=== PATIENT | female | born 1995 | race Caucasian/White ===

== ENCOUNTER 2017-06-05 02:34 | Outpatient (CLI) | payer OTHER ==
[2017-06-05] MEDS: LACTATED RINGERS 1,000 ML IV SCH ×3 (03:15→04:45)
[2017-06-05 03:41] LABS: Basophils % (A) 0 %; Eosinophils # (A) 0.1 k/uL (0-0.7); Eosinophils % (A) 2 %; HCT 34.6 % (34.0-46.0); HGB 11.7 gm/dL (11.4-16.0); Lymphocytes # (A) 1.9 k/uL (1.0-4.8); Lymphocytes % (A) 24 %; MCH 30.4 pg (25.0-35.0); MCHC 33.7 g/dL (31.0-37.0); MCV 90.1 fL (80.0-100.0); Monocytes # (A) 0.7 k/uL (0-1.0); Monocytes % (A) 8 %; Neutrophils # (A) 5.3 k/uL (1.3-7.7); Neutrophils % (A) 65 %; Platelet Count 216 k/uL (150-450); RBC 3.84 m/uL (3.80-5.40); RDW 13.3 % (11.5-15.5); WBC 8.2 k/uL (3.8-10.6)
[2017-06-05 03:51] VITALS: BP 129/85; PULSE 90; RESP 18; TEMP 97.8
[2017-06-05 04:31] LABS: Amorphous Sediment,Urine Rare /hpf; Appearance,Urine Turbid (Clear); Bilirubin,Urine Negative (Negative); Blood,Urine Negative (Negative); Color,Urine Light Yellow; Glucose,Urine (UA) Negative (Negative); Ketones,Urine Negative (Negative); Leukocyte Esterase,Urine Trace (Negative); Mucus,Urine Rare /hpf; Nitrite,Urine Negative (Negative); Protein,Urine Negative (Negative); Specific Gravity,Urine 1.008 (1.001-1.035); Squamous Epithelial Cell,Urine 2 /hpf (0-4); Urobilinogen,Urine <2.0 mg/dL (<2.0); WBC,Urine 2 /hpf (0-5)
[2017-06-05] MEDS ORDERED: BUTORPHANOL 1 MG/ML 1 ML VIAL IV PRN (04:38)
[2017-06-05] MEDS ORDERED: ACETAMINOPHEN IV (For NPO) 1,000 MG in EMPTY BAG 1 BAG IVPB STA (04:38)
--- NOTE | 2017-06-05 06:29 | US ---
ADDENDUM - Added by Sam Yen M.D. on 06/05/2017 6:30 AM (-05:00) Correction: Mild right bilateral hydronephrosis EXAM: US Retroperitoneal Complete CLINICAL HISTORY: Kidney pain. Left flank pain x2 days TECHNIQUE: Real-time ultrasound of the retroperitoneum (complete) with image documentation. COMPARISON: No relevant prior studies available. FINDINGS: Right kidney: 12.0 x 5.1 x 5.4 cm Appearing within the liver, adjacent to the right kidney, there is a prominent hyperechoic area visualized measuring 0.5 cm, nonspecific, differential includes artifact, granulomatous calcification versus tiny hemangioma. No stones. Left kidney: 12.6 x 5.5 x 5.0 cm No stones. No hydronephrosis. Bladder: Bilateral Jets are present Spleen: Measuring about 14.6 cm in long axis. Normal echotexture and contour IMPRESSION: Normal-appearing kidneys and urinary bladder Splenomegaly Critical Value Communications 06/05/17 06:45 Verify Receipt Verified receipt with [facility] on 06/05 06:44 (-05:00)
--- NOTE | 2017-07-13 13:52 | P.MSEPDOC ---
Presenting Problems - Arrival Data Date of Arrival on Unit: 06/05/17 Time of Arrival on Unit: 02:34 Mode of Transport: Portable - Complaint OB-Reason for Admission/Chief Complaint: Pain, Other Comment: C/o left flank pain Medical History - Information : 5 Para: 1 Term: 1 : 0 Abortions: Spontaneous or Elective: 0 Number of Living Children: 1 - Gestational Age Gestational Age by DEWEY (wks/days): 23 Weeks and 3 Days Review of Systems - Review of Systems Constitutional: No problems Breast: No problems ENT: No problems Cardiovascular: No problems Respiratory: No problems Gastrointestinal: No problems Genitourinary: No problems Musculoskeletal: No problems Neurological: No problems Skin: No problems Vital Signs - Temperature Temperature: 97.8 F Temperature Source: Temporal Artery Scan - Pulse Right Brachial Pulse Rate: 90 Pulse Assessment Method: Automatic Cuff - Respirations Respiratory Rate: 18 Oxygen Delivery Method: Room Air O2 Sat by Pulse Oximetry: 98 - Blood Pressure Right Arm Blood Pressure: 129/85 Blood Pressure Mean: 99 Blood Pressure Source: Automatic Cuff Medical Screen Scoring (Pre) - Cervical Exam Dilation: Exam Deferred Effacement: Exam Deferred Membranes: Intact - Uterine Contractions Frequency: N/A Duration: N/A Intensity: N/A - Maternal Vital Signs Maternal Temperature: N/A Maternal Blood Pressure: N/A Signs of Preeclampsia: N/A Maternal Respirations: N/A - Pain Assessment Pain Location and Character: Left, Lateral, Back, Abdomen Pain Scale Used: Numeric (1 - 10) Pain Intensity: 10 Pain Description: *Acute, Sharp, Shooting, Tender Pain Frequency: Intermittent Pain Duration: 5 Pain Duration Units: Minutes Pain Behavior: Crying, Facial Grimacing, Teary Eyed, Vocalization Pain Aggravating Factors: None Non-Pharmacological Interventions: Ice, Inactivity - Assessment Baseline FHR: 145 Heart Rate - NICHD Category: Category I (Normal) = 0 Position: N/A Station: N/A - Total Score Total Score (Pre): 0 - Level of Risk Level of Risk: N/A Physician Notification (Pre) - Physician Notified Physician Notified Date: 06/05/17 Physician Notified Time: 03:09 Physician/Practitioner Notifed:: Dr. Jovel Spoke With: Dr. Jovel New Order Received: Yes - Notification Comment Comment: Dr. Jovel called and given report on pt in triage, c/o of left flank pain starting around 2100 06/04/17, vs in wnl, pt tearful. Orders recieved for IV hydration, cbc w/diff, UA. Call with results with cbc and UA Medical Screen Scoring (Post) - Cervical Exam Dilation: Exam Deferred Effacement: Exam Deferred Membranes: Intact - Uterine Contractions Frequency: N/A Duration: N/A Intensity: N/A - Maternal Vital Signs Maternal Temperature: N/A Maternal Blood Pressure: N/A Signs of Preeclampsia: N/A Maternal Respirations: N/A - Pain Assessment Pain Location and Character: Left, Lateral, Back, Abdomen Pain Scale Used: Numeric (1 - 10) Pain Intensity: 8 Pain Description: *Acute, Sharp Pain Frequency: Intermittent Pain Duration: 10 Pain Duration Units: Minutes Pain Behavior: Facial Grimacing, Vocalization Pain Aggravating Factors: None Pharmacological Interventions: PRN Medication Non-Pharmacological Interventions: Inactivity - Assessment Heart Rate: 140 Heart Rate - NICHD Category: Category I (Normal) = 0 Position: N/A Station: N/A - Total Score Total Score (Post): 0 - Post Treatment Level of Risk Post Treatment Level of Risk: Low (0-5) Physician Notification (Post) - Physician Notified Physician Notified Date: 06/05/17 Physician Notified Time: 06:17 Physician/Practitioner Notified:: Dr. Jovel Spoke With: Dr. Jovel New Order Received: Yes (D/c pt to home) - Notification Comment Comment: reviewed by this RN Disposition - Disposition OB Disposition: Discharge to home Discharge Date: 06/05/17 Discharge Time: 06:40 I agree with the RN Medical Screening Exam: Yes Risk & Benefit of care provided described in d/c instruction: Yes Diagnosis: CALCULUS OF KIDNEY
== END 2017-06-05 06:40 | disposition home or self-care (01) ==
LOC: FBPOP 02:34
PROVIDERS: ATTEND Obstetrics & Gynecology
DX: O26.832 Pregnancy related renal disease, second trimester (principal); N20.0 Calculus of kidney; R16.1 Splenomegaly, not elsewhere classified; Z3A.23 23 weeks gestation of pregnancy
CPT/HCPCS: 99214; 96361; 96367; 96374; 85025; 81001; 76770; J0595; J0131; 96375

== ENCOUNTER 2017-09-24 08:54 | Inpatient (IN) | payer OTHER ==
[2017-09-23 13:38] VITALS: BMI 31.3
[2017-09-24] MEDS ORDERED: ceFAZolin IN SWFI 2 GM/20 ML SYRINGE IVP ONE (10:24)
[2017-09-24] MEDS ORDERED: CITRIC ACID-SODIUM CITRATE 15 ML CUP PO ONE (10:24)
[2017-09-24] MEDS ORDERED: LACTATED RINGERS 1,000 ML IV SCH (10:30)
[2017-09-24 11:45] LABS: Basophils % (A) 0 %; Eosinophils # (A) 0.1 k/uL (0-0.7); Eosinophils % (A) 1 %; HCT 32.2 % (34.0-46.0); HGB 10.4 gm/dL (11.4-16.0); Hypochromasia Moderate; Lymphocytes # (A) 1.9 k/uL (1.0-4.8); Lymphocytes % (A) 19 %; MCH 23.8 pg (25.0-35.0); MCHC 32.3 g/dL (31.0-37.0); MCV 73.6 fL (80.0-100.0); Mean Platelet Volume 9.1; Microcytosis Slight; Monocytes # (A) 0.6 k/uL (0-1.0); Monocytes % (A) 6 %; Neutrophils # (A) 6.9 k/uL (1.3-7.7); Neutrophils % (A) 72 %; Platelet Count 231 k/uL (150-450); Poikilocytosis Slight; RBC 4.38 m/uL (3.80-5.40); RDW 15.1 % (11.5-15.5); WBC 9.7 k/uL (3.8-10.6)
[2017-09-24] MEDS ORDERED: ONDANSETRON 4 MG/2 ML VIAL ONE (12:10)
[2017-09-24] MEDS ORDERED: ePHEDrine SULFATE/0.9% NACL/PF 50 MG/5 ML SYRINGE IV ONE (12:10)
[2017-09-24] MEDS ORDERED: KETOROLAC 30 MG/ML 1 ML VIAL ONE (12:10)
[2017-09-24] MEDS ORDERED: OXYTOCIN 10 UNIT/ML 1 ML VIAL ONE (12:10)
[2017-09-24] MEDS ORDERED: MORPHINE SULFATE (PF) 0.3 MG/0.3 ML SYR ONE (12:10)
[2017-09-24] MEDS ORDERED: NALBUPHINE 10 MG/ML AMPUL ONE (12:10)
[2017-09-24] MEDS ORDERED: ONDANSETRON 4 MG/2 ML VIAL IVP PRN ×2 (12:55→13:02)
[2017-09-24] MEDS ORDERED: MORPHINE SULFATE 4 MG/ML SYRINGE IVP PRN (12:55)
[2017-09-24] MEDS ORDERED: diphenhydrAMINE 50 MG/ML 1 ML VIAL IVP PRN ×3 (12:55→13:02)
[2017-09-24] MEDS ORDERED: NALOXONE 0.4 MG/ML 1 ML VIAL IV PRN ×2 (12:55→13:02)
--- NOTE | 2017-09-24 12:59 | P.HPOB ---
History of Present Illness H&P Date: 09/24/17 Chief Complaint: IUP at 39 and one sevenths weeks, history of 1 desires repeat This is a 21-year-old 5 para 1031 at 39 and one sevenths weeks with an estimated due date of 09/30/2017. Patient presents for repeat section. Patient denies contractions, vaginal bleeding, loss of fluid. She notes good movement On blood work a blood type of A+ was noted, rubella immune, hepatitis B surface antigen negative, GBS negative, HIV negative, RPR nonreactive. Review of Systems Constitutional: Denies chills, Denies fever Cardiovascular: Reports edema Respiratory: Denies cough, Denies dyspnea Gastrointestinal: Reports nausea, Reports vomiting, Denies constipation, Denies diarrhea Genitourinary: Reports Psychiatric: Reports anxiety, Reports anxiety attacks, Reports depression Past Medical History Past Medical History: GERD/Reflux Additional Past Medical History / Comment(s): migraines, History of Any Multi-Drug Resistant Organisms: None Reported Past Surgical History: Section Past Anesthesia/Blood Transfusion Reactions: Motion Sickness Smoking Status: Never smoker - Past Family History Mother Family Medical History: Cancer Medications and Allergies Home Medications Medication Instructions Recorded Confirmed Type Ondansetron [Zofran] 4 mg PO DAILY 04/23/17 09/23/17 History Ranitidine HCl [Zantac] 150 mg PO BID 09/23/17 09/23/17 History Allergies Allergy/AdvReac Type Severity Reaction Status Date / Time tree nut Allergy Dyspnea Verified 09/23/17 13:32 Exam Osteopathic Statement: *. No significant issues noted on an osteopathic structural exam other than those noted in the History and Physical/Consult. - Vital Signs Vital signs: Intake and Output 09/23/17 09/24/17 09/24/17 22:59 06:59 14:59 Other: Weight 87.997 kg Results Result Diagrams: 09/24/17 10:54 Abnormal Lab Results - Last 24 Hours (Table) 09/24/17 Range/Units 10:54 Hgb 10.4 L (11.4-16.0) gm/dL Hct 32.2 L (34.0-46.0) % MCV 73.6 L (80.0-100.0) fL MCH 23.8 L (25.0-35.0) pg Assessment and Plan (1) Term Current Visit: Yes Status: Acute Code(s): Z34.80 - ENCOUNTER FOR SUPRVSN OF NORMAL , UNSP TRIMESTER SNOMED Code(s): 92437119 (2) H/O section Current Visit: Yes Status: Acute Code(s): Z98.891 - HISTORY OF UTERINE SCAR FROM PREVIOUS SURGERY SNOMED Code(s): 592456082 (3) Anxiety Current Visit: Yes Status: Acute Code(s): F41.9 - ANXIETY DISORDER, UNSPECIFIED SNOMED Code(s): 45789113 (4) Depressed Current Visit: Yes Status: Acute Code(s): F32.9 - MAJOR DEPRESSIVE DISORDER , SINGLE EPISODE, UNSPECIFIED SNOMED Code(s): 45327353 Plan: We will admit patient for repeat section as discussed with patient in the office. Informed consent was obtained risks were reviewed including but not limited to infection, bleeding, damage to bladder, bowel, ureteric, injury. Questions were answered and patient states understanding. We'll proceed with repeat section.
[2017-09-24] MEDS ORDERED: diphenhydrAMINE 25 MG CAP PO PRN (13:02)
[2017-09-24] MEDS ORDERED: ZOLPIDEM 5 MG TAB PO PRN (13:02)
[2017-09-24] MEDS ORDERED: ACETAMINOPHEN IV (For NPO) 1,000 MG in EMPTY BAG 1 BAG IVPB ONE (13:02)
[2017-09-24] MEDS ORDERED: diphenhydrAMINE 50 MG CAP PO PRN (13:02)
[2017-09-24] MEDS ORDERED: METOCLOPRAMIDE 5 MG/ML 2 ML VIAL IVP PRN (13:02)
[2017-09-24] MEDS ORDERED: ACETAMINOPHEN TAB 325 MG TAB PO PRN (13:02)
--- NOTE | 2017-09-24 13:03 | P.OP ---
Date of Procedure: 09/24/17 Preoperative Diagnosis: IUP at 39 and one sevenths weeks, history of 1 desires repeat Postoperative Diagnosis: Same Procedure(s) Performed: Repeat section Anesthesia: spinal Surgeon: Joanne Gomez [employer] Iron Dipper #1: Bhumi Carlos Estimated Blood Loss (ml): 500 IV fluids (ml): 700 Urine output (ml): 200 Pathology: other (Placenta) Condition: stable Disposition: observation Indications for Procedure: Patient request due to prior history of Operative Findings: Normal uterus tubes and ovaries Description of Procedure: The patient was prepped and draped in the usual fashion after spinal anesthesia was administered by anesthesia. A Pfannenstiel incision was made and extended of the abdominal cavity without difficulty. The bladder peritoneum was elevated and incised and reflected distally. A 2 cm incision was made in the transverse plane of the lower uterine segment to enter the uterus at which time clear fluid was noted. The incision was extended in both directions using the bandage scissors. The head was encountered within the field and delivered up and through the incision where the nose and mouth were thoroughly suctioned. Remainder of the was delivered onto the surgical field where the cord was doubly clamped, cut, and the infant was passed for resuscitative measures with weight and Apgars as noted above. A segment of cord was then doubly clamped, cut, and set aside should cord gases become necessary. The placenta was delivered manually, intact, and was grossly normal with a grossly normal three-vessel cord. The uterus was exteriorized and the interior cavity of the uterus swept of any remaining placental and membranous fragments with a laparotomy sponge. The margins of the incision were grasped with Allis clamps and the incision closed in 2 layers. First layer was a running locking layer of 0 vicryl from margin to margin followed by a second layer of imbricating 0 vicryl from margin to margin. Any small points of bleeding were then made hemostatic with the Bovie. Once hemostasis was achieved, the posterior cul-de- sac was suctioned with a guard and the uterine and ovarian findings are as noted above. The uterus was replaced within the abdominal cavity and the gutters swept of any remaining blood fluid or clot. The incision was again reexamined and hemostasis was noted to be excellent. Any small point of bleeding were made hemostatic with the Bovie. Once hemostasis was achieved the parietal peritoneum was loosely reapproximated. The layer of muscles were examined and made hemostatic with the Bovie. Attention was then turned to the fascia which was closed with 2 running stitches of 0 Vicryl proceeding from the lateral margins to the midpoint. The subcutaneous tissues were irrigated, made hemostatic with the Bovie, and reapproximated with a running stitch of 30 plain catgut. The skin was reapproximated with 4-0 vicryl. Estimated blood loss for the case was approximately 500 mL. All sponge instrument and needle counts are correct. There were no complications. The patient tolerated the procedure well and proceeded to the recovery room in stable condition. Both mother and infant are resting comfortably in recovery. infant girl delivered at 1230, weight 8-8, apgars 9-9 at 1 and 5 mins respectively
[2017-09-24] MEDS ORDERED: IBUPROFEN IV 800 MG in SODIUM CHLORIDE 0.9% 250 ML IV ONE (13:04)
[2017-09-24] MEDS ORDERED: ALPRAZolam 0.25 MG TAB PO PRN (13:05)
[2017-09-24] MEDS ORDERED: OXYTOCIN 20 UNITS/1000 ML NS 1,000 ML IV SCH (13:15)
[2017-09-24] MEDS: LACTATED RINGERS 1,000 ML IV SCH ×2 (17:31→22:39)
[2017-09-24] MEDS ORDERED: HYDROcodone/APAP 5-325MG 1 EACH TAB PO PRN ×2 (19:02)
[2017-09-24] MEDS: SENNOSIDES-DOCUSATE SODIUM 1 EACH TAB PO SCH (20:27)
[2017-09-25] MEDS: LACTATED RINGERS 1,000 ML IV SCH ×2 (01:38→13:26)
--- NOTE | 2017-09-25 07:58 | P.PN ---
Progress Note - Text Date: 09/25/2017 Time: 0658 The patient is status post section Vital signs stable VAS: 3-10 Patient has no complaints of pain. The patient incurred some minimal itching yesterday, this itching is now subsiding. The patient also had some nausea. The nausea is being treated. Pain meds to be managed by service.
[2017-09-25] MEDS: SENNOSIDES-DOCUSATE SODIUM 1 EACH TAB PO SCH ×3 (08:03→19:50)
--- NOTE | 2017-09-25 08:44 | P.PNOBGPC ---
Subjective - Subjective Principal diagnosis: POD 1 RCS Interval history: Patient is doing well postoperatively, she states her pain is controlled. She is ambulating and voiding without difficulty. She is tolerating clear liquids without nausea or vomiting. Patient reports: Reports appetite normal, Reports voiding normally, Reports pain well controlled, Reports ambulating normally [place]: doing well Objective - Vital Signs Latest vital signs: Vital Signs Temp Pulse Pulse Resp BP Pulse Ox 09/25/17 08:00 98.0 F 94 16 107/64 96 09/25/17 06:28 16 09/25/17 05:00 18 09/25/17 03:41 98.3 F 77 18 116/70 100 09/25/17 03:00 18 09/25/17 01:00 18 98 09/24/17 23:45 98.2 F 87 16 110/65 96 09/24/17 23:00 98.2 F 87 18 110/65 96 09/24/17 21:00 18 97 09/24/17 20:00 97.6 F 89 18 104/66 09/24/17 19:00 18 09/24/17 17:00 16 09/24/17 16:59 98 09/24/17 15:08 98.4 F 92 16 108/64 98 09/24/17 14:38 98.4 F 82 16 115/65 97 09/24/17 14:07 110 H 16 127/59 97 09/24/17 13:55 16 97 09/24/17 13:53 97.1 F L 16 119/65 98 09/24/17 13:38 97 16 118/70 97 09/24/17 13:23 96 16 116/66 97 09/24/17 13:08 96.9 F L 94 16 112/63 97 Intake and Output 09/24/17 09/25/17 09/25/17 22:59 06:59 14:59 Intake Total 600 1000 Output Total 2100 1750 Balance -1500 -750 Intake: IV 300 1000 Lactated Ringers 1,000 ml 300 1000 @ 125 mls/hr IV .Q8H [facility] Rx#:[id number] Oral 300 Output: Urine 1000 1750 Uretheral (Pedraza) 400 Emesis 1100 Other: Voiding Method Indwelling Catheter # Voids 1 - Exam Extremities: Present: normal Abdomen: Present: soft Incision: Present: normal, dry, intact Uterus: Present: firm - Labs Labs: Abnormal Lab Results - Last 24 Hours (Table) 09/24/17 Range/Units 10:54 Hgb 10.4 L (11.4-16.0) gm/dL Hct 32.2 L (34.0-46.0) % MCV 73.6 L (80.0-100.0) fL MCH 23.8 L (25.0-35.0) pg Assessment and Plan (1) Term Current Visit: Yes Status: Acute Code(s): Z34.80 - ENCOUNTER FOR SUPRVSN OF NORMAL , UNSP TRIMESTER SNOMED Code(s): 07523536 (2) H/O section Current Visit: Yes Status: Acute Code(s): Z98.891 - HISTORY OF UTERINE SCAR FROM PREVIOUS SURGERY SNOMED Code(s): 002728317 (3) Anxiety Current Visit: Yes Status: Acute Code(s): F41.9 - ANXIETY DISORDER, UNSPECIFIED SNOMED Code(s): 20388479 (4) Depressed Current Visit: Yes Status: Acute Code(s): F32.9 - MAJOR DEPRESSIVE DISORDER , SINGLE EPISODE, UNSPECIFIED SNOMED Code(s): 79692857 Plan: We'll continue routine postoperative care. Patient is encouraged to ambulate today and we will advance her diet
[2017-09-25 09:00] LABS: Basophils % (A) 0 %; Eosinophils # (A) 0.1 k/uL (0-0.7); Eosinophils % (A) 1 %; HCT 31.1 % (34.0-46.0); HGB 9.7 gm/dL (11.4-16.0); Hypochromasia Moderate; Lymphocytes # (A) 1.3 k/uL (1.0-4.8); Lymphocytes % (A) 13 %; MCH 23.4 pg (25.0-35.0); MCHC 31.2 g/dL (31.0-37.0); Mean Platelet Volume 8.6; Microcytosis Slight; Monocytes # (A) 0.6 k/uL (0-1.0); Monocytes % (A) 6 %; Neutrophils # (A) 8.3 k/uL (1.3-7.7); Neutrophils % (A) 79 %; Platelet Count 217 k/uL (150-450); Poikilocytosis Slight; RBC 4.14 m/uL (3.80-5.40); RDW 15.3 % (11.5-15.5); WBC 10.6 k/uL (3.8-10.6)
[2017-09-25] MEDS ORDERED: MEASLES-MUMPS-RUBELLA VACC/PF 12,500 UNIT/0.5 ML VIAL SQ ONE (09:00)
[2017-09-25] MEDS: IBUPROFEN 600 MG TAB PO PRN ×3 (09:47→23:25)
[2017-09-25] MEDS: buPROPion XL 150 MG TAB.ER.24H PO SCH (10:25)
[2017-09-26] MEDS: IBUPROFEN 600 MG TAB PO PRN (07:33)
--- NOTE | 2017-09-26 08:58 | P.DS ---
Providers Date of admission: 09/24/17 10:06 Expected date of discharge: 09/26/17 Attending physician: Joanne Gomez Primary care physician: Stated None - Discharge Diagnosis(es) (1) Term Current Visit: Yes Status: Acute (2) H/O section Current Visit: Yes Status: Acute (3) Anxiety Current Visit: Yes Status: Acute (4) Depressed Current Visit: Yes Status: Acute Hospital Course: This is a very pleasant 21-year-old 5 para 1031 at 39-1/7 weeks that presented on 329 for repeat section. Patient denied complaints at that time. repeat was done without difficulty, for further details on the please see the operative report. she delivered an infant girl at 1230, weight 8-8 apgars of 9-9 at one and 5 mins respectively Patient's postoperative course has been uneventful. She is ambulating and voiding without difficulty. Her lochia is minimal, she states her pain is controlled with oral medications Mcgrath, Motrin. Mood is stable at this time, and her Wellbutrin is restarted Patient Condition at Discharge: Good Plan - Discharge Summary New Discharge Prescriptions: No Action Ondansetron [Zofran] 4 mg PO DAILY Ranitidine HCl [Zantac] 150 mg PO BID Discharge Medication List Ondansetron [Zofran] 4 mg PO DAILY 04/23/17 [History] Ranitidine HCl [Zantac] 150 mg PO BID 09/23/17 [History] Follow up Appointment(s)/Referral(s): Joanne Gomez DO [Doctor of Osteopathic Medicine] - 2 Weeks Patient Instructions/Handouts: (DC) Discharge Disposition: HOME SELF-CARE
[2017-09-26] MEDS: SENNOSIDES-DOCUSATE SODIUM 1 EACH TAB PO SCH (09:11)
[2017-09-26] MEDS: buPROPion XL 150 MG TAB.ER.24H PO SCH (09:11)
[2017-09-26 14:27] VITALS: BP 113/72; PULSE 82; RESP 18; TEMP 98.4
== END 2017-09-26 12:00 | disposition home or self-care (01) | DRG 766 ==
LOC: 4FBP 10:06
PROVIDERS: ADMIT Obstetrics & Gynecology Obstetrics; ATTEND Obstetrics & Gynecology Obstetrics
PROC: 00HU33Z Insertion of Infusion Device into Spinal Canal, Percutaneous Approach (ICD-10-PCS; 2017-09-24)
PROC: 3E0R3NZ Introduction of Analgesics, Hypnotics, Sedatives into Spinal Canal, Percutaneous Approach (ICD-10-PCS; 2017-09-24)
PROC: 10D00Z1 Extraction of Products of Conception, Low, Open Approach (ICD-10-PCS; principal; 2017-09-24 12:00)
DX: O34.211 Maternal care for low transverse scar from previous cesarean delivery (principal); F41.9 Anxiety disorder, unspecified; O99.344 Other mental disorders complicating childbirth; K21.9 Gastro-esophageal reflux disease without esophagitis; O99.62 Diseases of the digestive system complicating childbirth; O90.9 Complication of the puerperium, unspecified; L29.9 Pruritus, unspecified; R11.0 Nausea; Z3A.39 39 weeks gestation of pregnancy; Z37.0 Single live birth; Z79.899 Other long term (current) drug therapy; Z91.048 Other nonmedicinal substance allergy status; Z80.9 Family history of malignant neoplasm, unspecified
CPT/HCPCS: 85025; 86850; 86900; 86901; 88307; 90707

== ENCOUNTER → 2020-01-18 | Outpatient (CLI) | payer OTHER ==
[2020-01-18 14:15] LABS: Basophils # (A) 0.1 k/uL (0-0.2); Basophils % (A) 1 %; Eosinophils # (A) 0.2 k/uL (0-0.7); Eosinophils % (A) 2 %; HCT 46.1 % (34.0-46.0); HGB 15.3 gm/dL (11.4-16.0); Lymphocytes # (A) 2.9 k/uL (1.0-4.8); Lymphocytes % (A) 37 %; MCH 30.8 pg (25.0-35.0); MCHC 33.1 g/dL (31.0-37.0); Mean Platelet Volume 8.5; Monocytes # (A) 0.3 k/uL (0-1.0); Monocytes % (A) 5 %; Neutrophils # (A) 4.2 k/uL (1.3-7.7); Neutrophils % (A) 54 %; Platelet Count 259 k/uL (150-450); RBC 4.96 m/uL (3.80-5.40); RDW 12.2 % (11.5-15.5); WBC 7.7 k/uL (3.8-10.6)
== END | disposition home or self-care (01) ==
LOC: LABPAT 13:40
PROVIDERS: ATTEND Obstetrics & Gynecology Obstetrics
DX: Z01.818 Encounter for other preprocedural examination (principal)
CPT/HCPCS: 36415; 85025

== ENCOUNTER → 2021-03-01 | Outpatient (CLI) | payer SELFPAY | END | disposition home or self-care (01) | LOC: EDSTATUS 08:49 → LABPRL 19:42 | PROVIDERS: ATTEND Emergency Medicine | DX: Z20.822 Contact with and (suspected) exposure to COVID-19 (principal) | CPT/HCPCS: 87635 ==

== ENCOUNTER → 2022-06-28 | Outpatient (CLI) | payer OTHER | END | disposition home or self-care (01) | LOC: LABWHC1 15:55 | PROVIDERS: ATTEND Internal Medicine Infectious Disease | DX: Z20.822 Contact with and (suspected) exposure to COVID-19 (principal) | CPT/HCPCS: 87635 ==

== ENCOUNTER 2022-12-16 21:33 | Emergency (ER) | payer SELFPAY ==
[2022-12-16 21:55] VITALS: BP 143/90; PULSE 106; RESP 18; TEMP 98.4
[2022-12-17] MEDS ORDERED: MECLIZINE 25 MG TAB ONE (00:04)
[2022-12-17] MEDS ORDERED: SODIUM CHLORIDE 0.9% 1,000 ML BAG ONE (02:00)
[2022-12-17 05:55] LABS: ALT 14 U/L (4-34); AST 27 U/L (14-36); African American GFR (CKD) >90 (>60 ml/min/1.73 sqM); Albumin 3.6 g/dL (3.5-5.0); Alkaline Phosphatase <20 U/L (38-126); Anion Gap 9 mmol/L; Blood Urea Nitrogen 7 mg/dL (7-17); Calcium 8.2 mg/dL (8.4-10.2); Carbon Dioxide 22 mmol/L (22-30); Chloride 106 mmol/L (98-107); Glucose 87 mg/dL (74-99); Non-African American GFR(CKD) >90 (>60 ml/min/1.73 sqM); Potassium 4.8 mmol/L (3.5-5.1); Sodium 137 mmol/L (137-145); Total Bilirubin 0.7 mg/dL (0.2-1.3); Total Protein 6.5 g/dL (6.3-8.2)
[2022-12-17 06:02] LABS: Basophils % (A) 0 %; Eosinophils # (A) 0.1 k/uL (0-0.7); Eosinophils % (A) 1 %; HCT 42.2 % (34.0-46.0); HGB 14.3 gm/dL (11.4-16.0); Lymphocytes # (A) 1.6 k/uL (1.0-4.8); Lymphocytes % (A) 27 %; MCH 29.9 pg (25.0-35.0); MCHC 33.8 g/dL (31.0-37.0); MCV 88.5 fL (80.0-100.0); Mean Platelet Volume 8.8; Monocytes # (A) 0.5 k/uL (0-1.0); Monocytes % (A) 8 %; Neutrophils # (A) 3.5 k/uL (1.3-7.7); Neutrophils % (A) 61 %; Platelet Count 173 k/uL (150-450); RBC 4.78 m/uL (3.80-5.40); RDW 12.1 % (11.5-15.5); WBC 5.7 k/uL (3.8-10.6)
[2022-12-17 06:16] LABS: Appearance,Urine Clear (Clear); Bacteria,Urine Rare /hpf; Bilirubin,Urine Negative (Negative); Blood,Urine Negative (Negative); Color,Urine Colorless; Glucose,Urine (UA) Negative (Negative); Ketones,Urine Negative (Negative); Leukocyte Esterase,Urine Moderate (Negative); Mucus,Urine Rare /hpf; Nitrite,Urine Negative (Negative); Protein,Urine Negative (Negative); RBC,Urine <1 /hpf (0-5); Specific Gravity,Urine 1.003 (1.001-1.035); Squamous Epithelial Cell,Urine 1 /hpf (0-4); Urobilinogen,Urine <2.0 mg/dL (<2.0); WBC,Urine 4 /hpf (0-5)
== END 2022-12-17 03:50 | disposition home or self-care (01) ==
LOC: EC 21:33
DX: R42 Dizziness and giddiness (principal); Z86.59 Personal history of other mental and behavioral disorders
CPT/HCPCS: 36415; 80053; 81001; 81025; 85025; 96360; 99283

== ENCOUNTER → 2023-09-05 | Outpatient (CLI) | payer MEDICAID ==
[2023-09-06 07:46] LABS: Basophils # (A) 0.06 X 10*3/uL (0.00-0.10); Basophils % (A) 0.8 %; Eosinophils # (A) 0.11 X 10*3/uL (0.04-0.35); Eosinophils % (A) 1.5 %; HCT 44.4 % (37.2-46.3); HGB 14.3 g/dL (12.0-15.0); Lymphocytes # (A) 2.88 X 10*3/uL (0.90-5.00); Lymphocytes % (A) 38.5 %; MCH 29.5 pg (27.0-32.0); MCHC 32.2 g/dL (32.0-37.0); MCV 91.5 FL (80.0-97.0); Mean Platelet Volume 12.1 FL (9.5-12.2); Monocytes # (A) 0.62 X 10*3/uL (0.20-1.00); Monocytes % (A) 8.3 %; NRBC Per 100 WBC 0.02 X 10*3/uL (0.00-0.01); Neutrophils % (A) 50.8 %; Platelet Count 203 X 10*3/uL (140-440); RBC 4.85 X 10*6/uL (4.10-5.20); RBC Morphology Normal (Normal); RDW 12.8 % (11.5-14.5); WBC 7.48 X 10*3/uL (4.50-10.00)
[2023-09-06 08:58] LABS: ALT 11 U/L (8-44); AST 17 U/L (13-35); Albumin 4.6 g/dL (3.8-4.9); Albumin/Globulin Ratio 1.92 Ratio (1.60-3.17); Alkaline Phosphatase 59 U/L (41-126); BUN/Creat Ratio 8.14 Ratio (12.00-20.00); Blood Urea Nitrogen 5.7 mg/dL (9.0-27.0); Calcium 9.3 mg/dL (8.7-10.3); Carbon Dioxide 21.9 mmol/L (21.6-31.8); Chloride 104 mmol/L (96-109); Globulin 2.4 g/dL (1.6-3.3); Glucose 89 mg/dL (70-110); Lipase 50 U/L (14-63); Potassium 4.1 mmol/L (3.5-5.5); Sodium 138 mmol/L (135-145); T4, Free (Free Thyroxine) 1.04 ng/dL (0.80-1.80); Total Bilirubin 0.2 mg/dL (0.3-1.2)
== END | disposition home or self-care (01) ==
LOC: LABWHC1 10:18
PROVIDERS: ATTEND Registered Nurse Critical Care Medicine
DX: F33.0 Major depressive disorder, recurrent, mild (principal); Z79.899 Other long term (current) drug therapy
CPT/HCPCS: 36415; 80053; 82306; 82607; 82746; 83036; 83690; 84436; 84439; 84443; 84479; 85025